=== PATIENT | female | born 1955 | race Caucasian/White ===

== ENCOUNTER 2020-04-07 05:09 | Day surgery (SDC) | payer OTHER ==
[2020-04-03 16:52] VITALS: BMI 27.3
[2020-04-07 11:23] VITALS: TEMP 97.9
[2020-04-07 11:31] VITALS: PULSE 60
[2020-04-07 12:09] VITALS: BP 124/68
== END 2020-04-07 12:22 | disposition home or self-care (01) ==
LOC: JASU-ENDO 05:09
PROVIDERS: ATTEND Internal Medicine Gastroenterology
PROC: 0DBM8ZX Excision of Descending Colon, Via Natural or Artificial Opening Endoscopic, Diagnostic (ICD-10-PCS; principal; 2020-04-07 11:30)
DX: D12.4 Benign neoplasm of descending colon (principal); K64.8 Other hemorrhoids; K57.30 Diverticulosis of large intestine without perforation or abscess without bleeding
CPT/HCPCS: 88305-TC